=== PATIENT | male | born 1995 | race Caucasian/White ===

== ENCOUNTER 2016-04-22 10:32 | Emergency (ER) | payer BC, OTHER ==
[~2016-04-22] VITALS: Ht 185.4 cm; Wt 99.8 kg
[2016-04-22 10:34] VITALS: TEMP 37; Ht 185.4 cm; Wt 99.8 kg
--- NOTE | 2016-04-22 10:54 | EMERGENCY ROOM VISIT NOTE ---
History Report prepared by Cornel: Ana Choi Under the Supervision of: Dr. Mehran Fitzgerald M.D. First contact with patient: 10:45 Chief Complaint: COUGH Stated Complaint: COUGH,SWOLLEN GLANDS, RUNNY NOSE Nursing Triage Summary: pt reports cough, congestion 1week tx with prednisone, noted today swelling on L side of neck, denies difficulty or breathing History of Present Illness The patient is a 20 year old male who presents to the Emergency Room with complaints of a worsening cough for the past 1 week. The cough is productive. He complains of congestion and swelling on the left side of his neck. He experienced a fever 6 days ago, but states it has resolved. He saw a local [facility] early this past week and was placed on Prednisone and an inhaler for the cough. They have provided minimal relief. He also produced a negative strep test at [facility]. The patient notes he wore his dental retainer recently and also complains of a headache. He denies any difficulty breathing. He did see [facility] again earlier this morning and states he was told to come to the ED for further evaluation. He is up to date on his vaccinations and reports he had his tonsils removed approximately 1 year ago. The patient denies any sore throat. 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 Please see Additional Medical History Sheet. Past Medical & Surgical Medical Problems: (1) Seasonal allergies Surgical Problems: (1) History of tonsillectomy Social History Smoking Status: Current Some Day Smoker Alcohol Use: occasionally Drug Use: none Marital Status: single Housing Status: lives with roommate Occupation Status: [employer] student Current/Historical Medications Scheduled Prednisone (Prednisone), 20 MG PO BID Pseudoephedrine-Guaifenesin (Mucinex D), 1 TAB PO BID Miscellaneous Medications Prednisone (Prednisone), 1 MG PO Allergies Coded Allergies: No Known Allergies (Unverified , 04/22/16) Physical Exam Vital Signs Date Time Temp Pulse Resp B/P Pulse Ox O2 Delivery O2 Flow Rate FiO2 04/22/16 14:33 72 18 148/74 97 04/22/16 12:25 82 16 136/83 100 Room Air 04/22/16 11:06 97 Room Air 04/22/16 10:34 37.0 78 18 149/88 99 Room Air Physical Exam GENERAL: Patient awake, alert, oriented x 3. Patient follows commands. Patient does not appear toxic. Patient is adequately hydrated and well- nourished. SKIN: No erythema, pallor, cyanosis or rash HEENT: Normal head, pupils equal, reactive to light and accommodation. Ears normal. Oral cavity and posterior pharynx appear normal. Neck: Marked left submandibular lymphadenopathy, no neck vein distention. Other than swelling in left submandibular area, patient has no other adenopathy. LUNGS: Clear to auscultation. No wheezes, no rales, no rhonchi. HEART: No murmurs. No gallops. No rubs ABDOMEN: No masses, no rebound, no hepatomegaly or splenomegaly. EXTREMITIES: No signs of trauma. No pedal or pretibial edema. No calf or thigh tenderness. NEUROLOGIC: Cranial nerves II-XII within normal limits. No gross motor sensory function deficits. Medical Decision & Procedures ER Provider Diagnostic Interpretation: This X-Ray was reviewed and interpreted by myself and the radiologist. CHEST 2 VIEWS ROUTINE IMPRESSION: No acute cardiopulmonary findings. Electronically signed by: Jorge Clancy M.D. 04/22/2016 11:40 AM Laboratory Results 04/22/16 11:15 Red Blood Count 5.34, Mean Corpuscular Volume 90.3, Mean Corpuscular Hemoglobin 31.5, Mean Corpuscular Hemoglobin Concent 34.9, Mean Platelet Volume 12.1, Neutrophils (%) (Auto) 61.9, Lymphocytes (%) (Auto) 25.0, Monocytes (%) (Auto) 9.9, Eosinophils (%) (Auto) 1.0, Basophils (%) (Auto) 0.3, Neutrophils # (Auto) 3.82, Lymphocytes # (Auto) 1.54, Monocytes # (Auto) 0.61, Eosinophils # (Auto) 0.06, Basophils # (Auto) 0.02 Test 04/22/16 11:15 04/22/16 12:28 White Blood Count 6.17 K/uL (4.8-10.8) Red Blood Count 5.34 M/uL (4.7-6.1) Hemoglobin 16.8 g/dL (14.0-18.0) Hematocrit 48.2 % (42-52) Mean Corpuscular Volume 90.3 fL (80-100) Mean Corpuscular Hemoglobin 31.5 pg (25-34) Mean Corpuscular Hemoglobin Concent 34.9 g/dl (32-36) Platelet Count 186 K/uL (130-400) Mean Platelet Volume 12.1 fL (7.4-10.4) Neutrophils (%) (Auto) 61.9 % Lymphocytes (%) (Auto) 25.0 % Monocytes (%) (Auto) 9.9 % Eosinophils (%) (Auto) 1.0 % Basophils (%) (Auto) 0.3 % Neutrophils # (Auto) 3.82 K/uL (1.4-6.5) Lymphocytes # (Auto) 1.54 K/uL (1.2-3.4) Monocytes # (Auto) 0.61 K/uL (0.11-0.59) Eosinophils # (Auto) 0.06 K/uL (0-0.5) Basophils # (Auto) 0.02 K/uL (0-0.2) RDW Standard Deviation 41.9 fL (36.4-46.3) RDW Coefficient of Variation 12.7 % (11.5-14.5) Immature Granulocyte % (Auto) 1.9 % Immature Granulocyte # (Auto) 0.12 K/uL (0.00-0.02) Monoscreen NEG (NEG) Laboratory results as stated above per my review. Medications Administered Medications (Trade) Dose Ordered Sig/Sim Route Start Time Stop Time Status Last Admin Dose Admin Sodium Chloride (Nss 1000ml) 1,000 ml @ 999 mls/hr Q1H1M ONCE IV 04/22/16 11:00 04/22/16 12:00 DC 04/22/16 11:21 999 MLS/HR ED Course 1046: Past medical records reviewed. The patient was evaluated in room C6. A complete history and physical examination was performed. 1100: NSS 1000 ml @ 999 mls/hr IV. 1340: I reevaluated the patient. He is feeling much better. I discussed his results and discharge instructions and he verbalized complete understanding and agreement. Medical Decision The differential diagnoses considered include: mumps, dental abscess, lymphadenopathy, lymphoma, other lymphoblastic disease, mononucleosis, pneumonia. The patient has swelling of his left submandibular region. [place] test is negative. The patient has had past MMR vaccination so he does not likely have mumps. He appears to have no dental problems or infections of the year. Chest x-ray is clear. Neoplastic disease remains a possibility. The patient was placed in a short course of prednisone. If the swelling is not down in the near future he will most likely require a needle biopsy. The patient was referred to [facility]. Mumps testing is pending. Impression Primary Impression: Cervical lymphadenopathy Scribe Attestation The scribe's documentation has been prepared under my direction and personally reviewed by me in its entirety. I confirm that the note above accurately reflects all work, treatment, procedures, and medical decision making performed by me. Departure Information Dispostion Home / Self-Care Prescriptions Prednisone (Prednisone) 20 Mg Tab 20 MG PO BID for 5 Days, #10 TAB Prov: Mehran Fitzgerald M.D. 04/22/16 Referrals [facility] (PCP) Patient Instructions Lymphadenopathy, My [facility] Additional Instructions Prednisone 20 mg twice a day. 650 mg of Tylenol every 4-6 hours as needed for headache/neck pain. Follow-up at [facility] this coming week.
[2016-04-22] MEDS ORDERED: SODIUM CHLORIDE 0.9% 1000ML 1,000 ML IV ONE (11:00)
[2016-04-22] MEDS ORDERED: PRD/1 PO (11:27)
[2016-04-22] MEDS ORDERED: PSEU60TA80 PO (11:27)
--- NOTE | 2016-04-22 11:41 | DIAGNOSTIC IMAGING REPORT ---
CHEST 2 VIEWS ROUTINE CLINICAL HISTORY: Cough. Fever. COMPARISON STUDY: No previous studies for comparison. FINDINGS: Lung volumes are normal. Lungs are clear. There is no pneumothorax or pleural effusion. Cardiac size is normal. Mediastinal contours are normal. There is no evidence of pulmonary edema. IMPRESSION: No acute cardiopulmonary findings. Electronically signed by: Jorge Clancy M.D. 04/22/2016 11:40 AM Dictated Date/Time: 04/22/2016 11:39 AM
[2016-04-22 12:14] LABS: BASO % 0.3 %; BASO ABS # 0.02 K/uL (0-0.2); COMPLETE YES; HEMATOCRIT 48.2 % (42-52); IG% 1.9 %; LYMPH ABS # 1.54 K/uL (1.2-3.4); MEAN CELL VOLUME 90.3 fL (80-100); MEAN CORPUSCULAR HEMOGLOBIN 31.5 pg (25-34); MEAN CORPUSCULAR HGB CONC 34.9 g/dl (32-36); MEAN PLATELET VOLUME 12.1 fL (7.4-10.4); MONO % 9.9 %; NEUT % 61.9 %; PLATELET COUNT 186 K/uL (130-400); RED BLOOD COUNT 5.34 M/uL (4.7-6.1); WHITE BLOOD COUNT 6.17 K/uL (4.8-10.8)
[2016-04-22] MEDS ORDERED: PRED20TA PO (14:00)
[2016-04-22 14:33] VITALS: BP 148/74; PULSE 72; O2SAT 97
[2016-04-26 22:53] LABS: MUMPS VIRUS ANTIBODY IGM <1:20
== END 2016-04-22 14:34 | disposition home or self-care (01) ==
LOC: C.EDB 10:34 → C.EDC 14:34
DX: R59.0 Localized enlarged lymph nodes (principal); J30.2 Other seasonal allergic rhinitis; F17.210 Nicotine dependence, cigarettes, uncomplicated

== ENCOUNTER → 2017-04-16 | Outpatient (CLI) | payer OTHER ==
[~2017-04-16] MED LIST: PRD/1 PO; PSEU60TA80 PO
--- NOTE | 2017-04-16 08:08 | DIAGNOSTIC IMAGING REPORT ---
CT SCAN OF THE CHEST WITHOUT IV CONTRAST CLINICAL HISTORY: Abnormal x-ray. Attention to sternum. COMPARISON STUDY: Chest radiographs dated 04/22/2016. TECHNIQUE: CT scan of the thorax was performed from the thoracic inlet to the upper abdomen. Images are reviewed in the axial, sagittal, and coronal planes. IV contrast was not administered for this examination as per the referring clinician. A dose lowering technique was utilized adhering to the principles of ALARA. CT DOSE: 328.47 mGy.cm FINDINGS: Thyroid: Imaged portions of the thyroid gland are normal in size and attenuation. Thoracic aorta: The thoracic aorta is normal in caliber and demonstrates standard 3-vessel arch anatomy. Heart: The heart is normal in size and without pericardial effusion. Lungs and pleural spaces: The lungs and pleural spaces are clear. Mediastinum: Minimal residual thymic tissue is noted in the anterior mediastinum. There is no mediastinal lymphadenopathy. Faustina: Not well assessed without IV contrast. Axillae: There is no axillary lymphadenopathy. Upper abdomen: The spleen is enlarged, measuring 14.8 cm in length. Partially visualized upper abdominal viscera is within normal limits. Skeletal structures: No lytic or blastic bony lesions are seen. IMPRESSION: 1. The lungs are clear. 2. The bony thorax is normal in appearance. Specifically, no sternal abnormality is identified as clinically queried. 3. Splenomegaly. Electronically signed by: Wu Baker M.D. 04/16/2017 8:07 AM Dictated Date/Time: 04/16/2017 7:55 AM
== END | disposition home or self-care (01) ==
LOC: C.CTS 07:17
PROVIDERS: ATTEND Family Medicine
DX: R93.8 Abnormal findings on diagnostic imaging of other specified body structures (principal); R16.1 Splenomegaly, not elsewhere classified

== ENCOUNTER → 2017-07-01 | Outpatient (CLI) | payer OTHER ==
--- NOTE | 2017-07-01 15:48 | DIAGNOSTIC IMAGING REPORT ---
(SPLEEN) [facility] CLINICAL HISTORY: SPLEENOMEGALY splenic enlargement TECHNIQUE: Ultrasound COMPARISON STUDY: CT chest 04/16/2017 FINDINGS: Enlarged plane with a maximum dimension of 14.6 cm. This is unchanged in the prior study. Hepatic arterial and venous structures are patent. IMPRESSION: 1. Moderate stable splenomegaly with dimensions unchanged from the patient's prior CT study. 2. All major arterial and venous structures are patent. The above report was generated using voice recognition software. It may contain grammatical, syntax or spelling errors. Electronically signed by: Demario Acosta M.D. 07/01/2017 3:46 PM Dictated Date/Time: 07/01/2017 3:44 PM
== END | disposition home or self-care (01) ==
LOC: C.ULTR 15:16
PROVIDERS: ATTEND Internal Medicine Hematology & Oncology
DX: R16.1 Splenomegaly, not elsewhere classified (principal)